=== PATIENT | female | born 1970 | race Two or more races ===

== ENCOUNTER 2023-05-22 12:00 | Emergency (ER) | payer OTHER ==
[~2023-05-22] VITALS: Ht 172.7 cm; Wt 92.1 kg
[2023-05-22] MEDS ORDERED: KAPSPARGO SPRIN25 MG PO (12:10)
[2023-05-22] MEDS ORDERED: LASIX20 MG (12:10)
[2023-05-22 14:50] LABS: PH,URINE 7.5 (5.0-8.0); URINE APPEARANCE Clear; URINE BILIRRUBIN Negative (NEGATIVE); URINE BLOOD Negative; URINE COLOR Yellow; URINE GLUCOSE Negative (NEGATIVE); URINE LEUKOCYTE Negative; URINE NITRATE Negative; URINE PROTEIN Negative (NEGATIVE); URINE UROBILINOGEN 0.2 E.U./dl
[2023-05-22 14:54] LABS: URINE EPITHELIAL CELLS 3.7 uL (0.0-38.8); URINE RBC 80.2 uL (0.0-20.8)
[2023-05-22 15:25] LABS: HEMATOCRIT 31.8 % (36.0-45.00); HEMOGLOBIN 10.1 g/dL (12.0-15.00); MEAN CELL VOLUME 75.5 fL (80.00-100.00); MEAN CORPUSCULAR HEMOGLOBIN 23.9 pg (27.00-32.0); MEAN CORPUSCULAR HGB CONC 31.7 g/dl (32.0-36.0); PLATELET COUNT 282 K/uL (150-450); RED BLOOD COUNT 4.22 M/uL (4.00-6.00); RED CELL DISTRIBUTION WIDTH 17.4 % (11.5-14.5)
[2023-05-22 15:28] LABS: CALCIUM 9.3 mg/dL (8.5-10.1); CREATININE SERUM 0.8 mg/dL (0.55-1.02); GFR 75.32; POTASSIUM 3.87 mEq/L (3.5-5.1)
[2023-05-22 15:32] LABS: ALBUMIN 3.8 gm/dL (3.4-5.0); ALKALINE PHOSPHATASE 107 U/L (50-136); ALT/SGPT 26 U/L (12-78); AMYLASE 115 U/L (25-115); AST/SGOT 26 U/L (15-37); BILIRUBIN TOTAL 0.35 mg/dL (0.3-1.2); BILIRUBIN,CONJUGATED < 0.10 mg/dL (0.0-0.2); BILIRUBIN,UNCONJUGATED 0.25 mg/dL (0.0-0.6); LIPASE 72 U/L (13-75); TOTAL PROTEIN 7.5 gm/dL (6.4-8.2)
== END 2023-05-22 18:25 | disposition home or self-care (01) ==
LOC: ER 12:00
PROVIDERS: General Practice
DX: R10.32 Left lower quadrant pain (principal); Z88.0 Allergy status to penicillin; Z98.84 Bariatric surgery status

== ENCOUNTER 2025-02-23 11:51 | Emergency (ER) | payer OTHER ==
[~2025-02-23] VITALS: Ht 172.7 cm; Wt 90.3 kg
[~2025-02-23 11:51] MED LIST: KAPSPARGO SPRIN25 MG PO; LASIX20 MG
[2025-02-23] MEDS ORDERED: KETOROLAC TROMETHAMINE 60 MG VIAL IM ONE ×2 (12:15→12:58)
[2025-02-23] MEDS ORDERED: DICLOFENAC SODI75 MG PO (13:01)
== END 2025-02-23 13:58 | disposition home or self-care (01) ==
LOC: ER 11:55
DX: S69.81XA Other specified injuries of right wrist, hand and finger(s), initial encounter (principal); W07.XXXA Fall from chair, initial encounter; Y93.89 Activity, other specified; Y92.89 Other specified places as the place of occurrence of the external cause; Y99.8 Other external cause status; M25.531 Pain in right wrist; Z88.0 Allergy status to penicillin

== ENCOUNTER → 2025-03-13 08:37 | Outpatient (CLI) | payer OTHER ==
[~2025-03-13 08:37] MED LIST changes: +DICLOFENAC SODI75 MG PO
[2025-03-13 09:40] LABS: COVID-19 AG NEGATIVE (NEGATIVE)
== END | disposition home or self-care (01) ==
LOC: LAB 08:37
PROVIDERS: ATTEND Preventive Medicine Occupational Medicine
DX: J11.1 Influenza due to unidentified influenza virus with other respiratory manifestations (principal); Z20.828 Contact with and (suspected) exposure to other viral communicable diseases